=== PATIENT | female | born 1995 | race Caucasian/White ===

== ENCOUNTER 2017-01-20 11:31 | Emergency (ER) | payer OTHER ==
[~2017-01-20] VITALS: Ht 165.1 cm; Wt 56.7 kg
[2017-01-20 11:42] VITALS: BP 103/60
--- NOTE | 2017-01-20 12:24 | NUR ---
Patient ambulated to bed 6 with family. RN evaluating patient at bedside.
--- NOTE | 2017-01-20 12:31 | NUR ---
Pt came to ER due to nausea with > 3 episodes of emesis and 2 episodes of watery stools. bodyaches and headache; throbbing headache;pain scale of 6/10;denies any medical hx;aaox4;unlabored breathing;denies cp/sob/cough at this time;HOB elevated;needs attendeed;safety measures done;positioned for comfort;md at bedside.
--- NOTE | 2017-01-20 12:31 | NUR ---
Note undone in EDM - 01/20/17 at 1316 by MEDBASILIAF Pt vcane to ER due to nausea with > 3 episodes of emesis and 2 episodes of watery stools. bodyaches and headache; throbbing headache;pain scale of 6/10;denies any medical hx;aaox4;unlabored breathing;denies cp/sob/cough at this time;HOB elevated;needs attendeed;safety measures done;positioned for comfort;md at bedside.
--- NOTE | 2017-01-20 12:35 | NUR ---
Dr. Manrique evaluating patient at bedside.
[2017-01-20] MEDS ORDERED: ONDANSETRON 4 MG ODT PO ONE (12:40)
[2017-01-20] MEDS ORDERED: ALUMINUM HYD/MAG/SIMETHICONE 30 ML UDC PO ONE (12:40)
--- NOTE | 2017-01-20 13:15 | NUR ---
pt resting on bed;no acute distress noted;no vomiting ;will continue to monitor pt.
--- NOTE | 2017-01-20 14:01 | NUR ---
Patient discharged with v/s stable. Written and verbal after care instructions given and explained. Patient alert, oriented and verbalized understanding of instructions. Ambulatory with steady gait. All questions addressed prior to discharge. ID band removed. Patient advised to follow up with PMD. Rx of zofran given. Patient educated on indication of medication including possible reaction and side effects. Opportunity to ask questions provided and answered.encouraged pt to increase fluid intake.
[2017-01-20 14:04] VITALS: BP 105/60
== END 2017-01-20 14:01 | disposition home or self-care (01) ==
LOC: MED 11:31
DX: K52.9 Noninfective gastroenteritis and colitis, unspecified (principal)
CPT/HCPCS: 81002; 81025; 99283; S0119

== ENCOUNTER 2019-01-12 17:51 | Emergency (ER) | payer OTHER ==
[~2019-01-12] VITALS: Ht 162.6 cm; Wt 52.8 kg
[2019-01-12 18:16] VITALS: BP 129/80
--- NOTE | 2019-01-12 18:18 | NUR ---
urine cup handed to pt for sample---pt to wait in er lobby for md nagy
--- NOTE | 2019-01-12 18:54 | NUR ---
PATIENT AMBULATED TO BED #7
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
[2019-01-12 19:13] VITALS: BP 117/80
== END 2019-01-12 19:13 | disposition home or self-care (01) ==
LOC: MED 17:51
DX: S16.1XXA Strain of muscle, fascia and tendon at neck level, initial encounter (principal); S09.90XA Unspecified injury of head, initial encounter; V89.2XXA Person injured in unspecified motor-vehicle accident, traffic, initial encounter; Y93.89 Activity, other specified; Y92.89 Other specified places as the place of occurrence of the external cause; Y99.8 Other external cause status
CPT/HCPCS: 99282

== ENCOUNTER 2019-02-05 19:29 | Emergency (ER) | payer OTHER ==
[~2019-02-05] VITALS: Ht 160 cm; Wt 52.6 kg
[2019-02-05 19:30] VITALS: BP 127/85
--- NOTE | 2019-02-05 19:35 | NUR ---
PT AMBULATED TO BED 8 WITH MOTHER
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
[2019-02-05] MEDS ORDERED: KETOROLAC 30 MG/ML VIAL IM ONE (19:55)
[2019-02-05 21:40] VITALS: BP 118/84
--- NOTE | 2019-02-05 21:40 | NUR ---
Patient discharged with v/s stable. Written and verbal after care instructions given and explained. Patient alert, oriented and verbalized understanding of instructions. Ambulatory with steady gait. All questions addressed prior to discharge. ID band removed. Patient advised to follow up with PMD. Rx of FLEXERIL, MOTRIN, AND NITROFURANTOIN given. Patient educated on indication of medication including possible reaction and side effects. Opportunity to ask questions provided and answered.
== END 2019-02-05 21:40 | disposition home or self-care (01) ==
LOC: MED 19:29
DX: N39.0 Urinary tract infection, site not specified (principal)
CPT/HCPCS: 81002; 81025; 87086; 96372; 99283; J1885

== ENCOUNTER 2019-04-21 20:09 | Emergency (ER) | payer OTHER ==
[~2019-04-21] VITALS: Ht 162.6 cm; Wt 54.0 kg
[2019-04-21 20:15] VITALS: BP 106/60
--- NOTE | 2019-04-21 20:15 | NUR ---
TO BED #03 AMBULATORY
--- NOTE | 2019-04-21 20:18 | NUR ---
ER-MD CAME BY BEDSIDE TO EVALUATE PT.
--- NOTE | 2019-04-21 20:31 | NUR ---
URINE HCG DONE AND IS NEGATIVE.
--- NOTE | 2019-04-21 20:39 | NUR ---
X-RAY OF THE LEFT ELBOW AND WRIST BEING DONE AT BEDSIDE.
--- NOTE | 2019-04-21 21:06 | NUR ---
JASMINE WRAP APPLIED TO THE LEFT ELBOW BY [employer]LE[employer] COACH.
--- NOTE | 2019-04-21 21:36 | NUR ---
DISCHARGED BY ER-MD STABLE WITH PRESCRIPTION, VERBAL AND WRITTEN AFTERCARE INSTRUCTIONS. VERBALIZED UNDERSTANDING.
[2019-04-21 21:41] VITALS: BP 111/68
== END 2019-04-21 21:36 | disposition home or self-care (01) ==
LOC: MED 20:09
DX: S53.402A Unspecified sprain of left elbow, initial encounter (principal); V00.131A Fall from skateboard, initial encounter; Y93.51 Activity, roller skating (inline) and skateboarding; Y92.89 Other specified places as the place of occurrence of the external cause; Y99.8 Other external cause status
CPT/HCPCS: 73080; 73110; 81025; 99283; Q0092

== ENCOUNTER 2024-07-01 22:47 | Emergency (ER) | payer OTHER ==
[~2024-07-01] VITALS: Ht 160 cm; Wt 62.3 kg
[2024-07-01 23:02] VITALS: BP 119/81; PULSE 73; RESP 16; TEMP 98.6; O2SAT 99
[2024-07-02] MEDS ORDERED: AZIT250T4 PO (02:27)
[2024-07-02] MEDS ORDERED: IBUP-2213 PO (02:27)
[2024-07-02] MEDS: IBUPROFEN 600 MG TAB PO ONE (02:29)
== END 2024-07-02 02:32 | disposition home or self-care (01) ==
LOC: MED 22:47
DX: S60.812A Abrasion of left wrist, initial encounter (principal); Z79.899 Other long term (current) drug therapy; W55.03XA Scratched by cat, initial encounter; Y93.89 Activity, other specified; Y92.89 Other specified places as the place of occurrence of the external cause; Y99.8 Other external cause status
CPT/HCPCS: 99283